=== PATIENT | female | born 1950 | race Caucasian/White ===

== ENCOUNTER 2018-04-16 00:47 | Emergency (ER) | payer MEDICARE ==
[~2018-04-16] VITALS: Ht 160 cm; Wt 78.0 kg
[2018-04-16] MEDS ORDERED: KETOROLAC TROMETHAMINE 30 MG/ML VIAL IV STA (01:24)
[2018-04-16] MEDS ORDERED: ONDANSETRON HCL INJ 2 MG/ML VIAL IV STA (01:24)
[2018-04-16 01:48] LABS: BASOPHILS % 0.3 % (0.0-1.0); EOSINOPHILS # (AUTO) 0.1 (0.0-0.4); EOSINOPHILS % 1.5 % (0.0-6.0); HEMATOCRIT 39.9 % (34.2-44.1); HEMOGLOBIN 13.4 g/dL (12.0-16.0); LYMPHOCYTES # (AUTO) 2.7 (1.0-3.2); LYMPHOCYTES % 44.6 % (18.0-39.1); MEAN CORPUSCULAR HEMOGLOBIN 29.5 pg (28-32); MEAN CORPUSCULAR HGB CONC 33.6 g/dL (31-35); MEAN CORPUSCULAR VOLUME 87.7 fL (81-99); MONOCYTES # (AUTO) 0.4 (0.2-0.8); MONOCYTES % 6.6 % (4.4-11.3); NEUTROPHILS # (AUTO) 2.8 (2.1-6.9); NEUTROPHILS % 46.8 % (38.7-80.0); PLATELET COUNT 277 x10e3/uL (140-360); RED BLOOD COUNT 4.55 x10e6/uL (3.6-5.1); RED CELL DISTRIBUTION WIDTH 13.2 % (11.7-14.4)
[2018-04-16 02:07] LABS: ALBUMIN 4.2 g/dL (3.5-5.0); ALBUMIN/GLOBULIN RATIO 1.4 (0.8-2.0); CALCIUM 9.6 mg/dL (8.4-10.2); CREATININE, SERUM 1.32 mg/dL (0.57-1.11)
--- NOTE | 2018-04-16 02:47 | Diagnostic Imaging Report ---
EXAM: CT ABDOMEN/PELVIS WO DATE: 04/16/2018 1:24 AM INDICATION: Right flank pain COMPARISON: None TECHNIQUE: The abdomen and pelvis were scanned using a multidetector helical scanner. Coronal and sagittal reformations were obtained. CT low dose techniques were utilized, as applicable. IV Contrast: 0 ml Isovue 300/370 FINDINGS: Lack of IV contrast decreases sensitivity in evaluating abdominal and pelvic organs. LOWER THORAX: Bibasilar atelectasis/scarring. Left basilar calcified granuloma. LIVER/BILIARY: Hepatic steatosis. 2.2 cm fluid density liver lesion compatible with a cyst. No ductal dilatation. GALLBLADDER: Surgically absent SPLEEN: Unremarkable PANCREAS: Unremarkable ADRENALS: No nodules KIDNEYS: Renal parenchyma poorly assessed without IV contrast. Postsurgical changes status post partial right nephrectomy with presumed fat necrosis adjacent to the superior pole. 1.6 cm left interpolar renal cystic lesion. No hydronephrosis or stone disease. GI TRACT: No wall thickening or evidence of obstruction. Normal appendix. VESSELS: Mild atherosclerotic calcifications PERITONEUM/RETROPERITONEUM: No free air or fluid LYMPH NODES: Multiple scattered small retroperitoneal nodes, not pathologically enlarged. REPRODUCTIVE ORGANS/BLADDER: Hysterectomy. Left pelvic clips. Bladder unremarkable BONES: Degenerative changes, worse at L3-4 IMPRESSION: No acute abnormality on noncontrast evaluation. Signed by: Dr Kristan Schneider MD on 04/16/2018 2:41 AM
[2018-04-16] MEDS ORDERED: POTASSIUM CHLORIDE 20 MEQ TAB CR PO STA (02:50)
[2018-04-16] MEDS ORDERED: TENORMIN50 MG PO (02:52)
[2018-04-16] MEDS ORDERED: LEVOTHYROXINE175 MCG PO (02:52)
[2018-04-16] MEDS ORDERED: K DUR10 MEQ PO (02:52)
[2018-04-16] MEDS ORDERED: FORTAMET1000 MG PO (02:52)
[2018-04-16] MEDS ORDERED: CHLORTHALIDONE25 MG PO (03:03)
[2018-04-16 03:44] LABS: CLARITY,URINE HAZY (CLEAR); COLOR,URINE YELLOW (YELLOW); LEUKOCYTE ESTERASE ,URINE 1+ (NEGATIVE)
[2018-04-16 03:45] LABS: BILIRUBIN,URINE NEGATIVE (NEGATIVE); KETONES,URINE TRACE (NEGATIVE); NITRITE,URINE NEGATIVE (NEGATIVE); PROTEIN,URINE DIPSTICK NEGATIVE (NEGATIVE); URINE UROBILINOGEN 0.2 mg/dL (0.2 - 1)
[2018-04-16 04:00] LABS: WBC,URINE (MAN) 21-50 /HPF (0-5)
[2018-04-16 04:01] LABS: BACTERIA,URINE MODERATE /HPF; EPITHELIAL CELLS,URINE FEW /LPF; MUCUS,URINE FEW (RARE); RBC,URINE 0-5 /HPF (0-5)
[2018-04-16] MEDS ORDERED: CEFTRIAXONE SOD 1 GM/NS 50 ML 50 ML IV ONE (04:15)
== END 2018-04-16 04:55 | disposition home or self-care (01) ==
LOC: ER 00:47
DX: R10.31 Right lower quadrant pain (principal); R11.0 Nausea; N30.90 Cystitis, unspecified without hematuria; I10 Essential (primary) hypertension; E11.9 Type 2 diabetes mellitus without complications; E03.9 Hypothyroidism, unspecified; Z85.53 Personal history of malignant neoplasm of renal pelvis
CPT/HCPCS: 36415; 74176; 80053; 81001; 85025; 96374; 96375; 99283; J0696; J1885; J2405

== ENCOUNTER 2024-12-28 22:10 | Inpatient (IN) | payer MEDICARE ==
[~2024-12-28] VITALS: Ht 160 cm; Wt 63.5 kg
[~2024-12-28 22:10] MED LIST: CHLORTHALIDONE25 MG PO; FORTAMET1000 MG PO; K DUR10 MEQ PO; LEVOTHYROXINE175 MCG PO; ONDANSETRON ODT4 MG PO; TENORMIN50 MG PO
[2024-12-28] MEDS ORDERED: IOPAMIDOL 370 MG/ML 100 ML INFUS..BTL INJ ONE (23:24)
[2024-12-28] MEDS: MECLIZINE HCL 12.5 MG TAB PO ONE (23:39)
[2024-12-28] MEDS: METOCLOPRAMIDE HCL 10 MG/2ML VIAL IV ONE (23:39)
[2024-12-28] MEDS: SODIUM CHLORIDE 0.9% 500ML 500 ML IV ONE (23:39)
[2024-12-28] MEDS: DIPHENHYDRAMINE HCL INJ 50 MG/ML VIAL IV ONE (23:39)
[2024-12-29] VITALS (11 sets, daily range): BP systolic 100–123; BP diastolic 58–62; PULSE 50–97; RESP 16–20; TEMP 97.6–99; O2SAT 95–100
[2024-12-29] MEDS ORDERED: MECLIZINE HCL 12.5 MG TAB PO PRN (01:30)
[2024-12-29] MEDS ORDERED: SODIUM CHLORIDE FLUSH 10 ML SYR INJ PRN (01:30)
[2024-12-29] MEDS ORDERED: BENZONATATE 100 MG CAP PO PRN (01:45)
[2024-12-29] MEDS ORDERED: ALBUTEROL/IPRATROPIUM 3 ML NEB NEB PRN (01:45)
[2024-12-29] MEDS ORDERED: MELATONIN 5 MG TABLET PO PRN (01:45)
[2024-12-29] MEDS ORDERED: ONDANSETRON HCL INJ 2MG/ML 2ML 2 MG/ML VIAL IV PRN (01:45)
[2024-12-29] MEDS ORDERED: ACETAMINOPHEN 325 MG TAB PO PRN (01:45)
[2024-12-29] MEDS ORDERED: DOCUSATE SODIUM 100 MG CAP PO PRN (01:45)
[2024-12-29] MEDS ORDERED: HYDRALAZINE HCL 20 MG/ML VIAL IV PRN (01:45)
[2024-12-29] MEDS ORDERED: DEXTROSE 50% SYRINGE 50 ML IV PRN (01:45)
[2024-12-29] MEDS ORDERED: DIPHENHYDRAMINE HCL 25 MG CAP PO PRN (01:45)
[2024-12-29] MEDS: METHYLPREDNISOLONE SOD SUCC 40 MG/ML VIAL 1ML IV SCH (09:33)
[2024-12-29] MEDS: PANTOPRAZOLE SOD 40 MG TABEC PO SCH (09:34)
[2024-12-29] MEDS: ENOXAPARIN SOD INJ 40 MG/0.4 ML SYR SC SCH (16:28)
[2024-12-30 03:23] VITALS: BP 123/64; PULSE 57; RESP 18; TEMP 97.4; O2SAT 97
[2024-12-30 06:05] LABS: BASOPHILS % 0.1 % (0.0-1.0); EOSINOPHILS % 0.0 % (0.0-6.0); LYMPHOCYTES % 9.7 % (18.0-39.1); MONOCYTES % 1.0 % (4.4-11.3); NEUTROPHILS % 88.9 % (38.7-80.0); RED CELL DISTRIBUTION WIDTH 12.1 % (11.7-14.4)
[2024-12-30 06:40] LABS: EST GLOMERULAR FILTRATION RATE 83.0 ML/MIN (>=60); PHOSPHORUS 4.2 MG/DL (2.3-4.7)
[2024-12-30 06:43] VITALS: PULSE 74; RESP 20; O2SAT 95
[2024-12-30 07:05] LABS: CHOL/HDL RATIO 3.0 (3.0-3.6); LDL CHOLESTEROL 79.0 MG/DL (60-130)
[2024-12-30] MEDS: LEVOTHYROXINE SODIUM 75 MCG TAB PO SCH (07:14)
[2024-12-30] MEDS: POTASSIUM CHLORIDE 20 MEQ TAB CR PO PRN (07:14)
[2024-12-30] MEDS: LEVOTHYROXINE SODIUM 100 MCG TAB PO SCH (07:14)
[2024-12-30 08:44] VITALS: BP 123/64; PULSE 57; RESP 18; TEMP 97.6; O2SAT 97
[2024-12-30 11:03] VITALS: BP 123/64; PULSE 57; RESP 18; TEMP 97.6; O2SAT 97
[2024-12-30] MEDS: POTASSIUM CHLORIDE 20 MEQ TAB CR PO ONE (11:38)
[2024-12-30] MEDS ORDERED: LEVOTHYROXINE112 MCG PO (14:26)
== END 2024-12-30 15:15 | disposition home or self-care (01) | DRG 149 ==
LOC: FSED 22:44 → ERHOLD 12-29 01:25 → MED/SURG2 12-29 02:49
PROVIDERS: ADMIT Internal Medicine; ATTEND Internal Medicine
DX: H81.13 Benign paroxysmal vertigo, bilateral (principal); E11.9 Type 2 diabetes mellitus without complications; I10 Essential (primary) hypertension; E89.0 Postprocedural hypothyroidism; H65.92 Unspecified nonsuppurative otitis media, left ear; R26.81 Unsteadiness on feet; Z79.84 Long term (current) use of oral hypoglycemic drugs; Z79.890 Hormone replacement therapy; Z86.011 Personal history of benign neoplasm of the brain; Z90.5 Acquired absence of kidney; Z85.528 Personal history of other malignant neoplasm of kidney; Z85.89 Personal history of malignant neoplasm of other organs and systems; Z90.49 Acquired absence of other specified parts of digestive tract; Z90.710 Acquired absence of both cervix and uterus; Z86.69 Personal history of other diseases of the nervous system and sense organs
CPT/HCPCS: 36415; 70496; 70498; 70551; 80048; 80061; 80076; 81003; 82948; 83036; 83735; 84100; 84132; 84443; 84484; 85025; 93005; 93306; 94799; 96374; 99284; J1200; J2470; J2765; J2919; J7040; Q9967